=== PATIENT | male | born 1980 | race Hispanic/Latino ===

== ENCOUNTER 2017-12-14 10:56 | Outpatient (CLI) | payer OTHER ==
--- NOTE | 2017-12-14 13:55 | MRI ---
MRI LUMBAR SPINE WITHOUT CONTRAST: HISTORY: Lumbar radiculopathy, right leg is weaker than the left leg, since October. COMPARISON: None. TECHNIQUE: Lumbar spine MRI is performed without intravenous Gadolinium administration. Multisequential, multip lanar imaging is performed. FINDINGS: Appropriate T1 marrow signal intensity lumbar vertebrae. Lumbar spine vertebral body height is maint ained. There is no fracture. No significant STIR hyperintensity to suggest vertebral body edema or ligamentous injury. Symmetric signal intensity of the psoas muscles. Appropriate signal intensity o f the visualized solid organs. Conus medullaris terminates at the superior aspect of L2. Note, there appears to be partially lumbarized S1 vertebral body. 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 No significant central canal steno sis or significant foraminal narrowing. The significance of the left neural foramen perineural sleev e cyst is uncertain, but there does appear to be some displacement of the exiting left T12 nerve root . L1-L2: Adequate disk hydration. No significant central canal stenosis or foraminal narrowing. L2-L3: Adequate disk hydration. No significant central canal stenosis. Neural foramen are patent. L3-L4: Mild loss of disk space height. No significant cardiac silhouette. Foramen are patent. L4-L5: There is mild loss of disk space height. No significant central canal stenosis. Foramen are patent. L5-S1: Minimal loss of disk space height. No significant central canal stenosis. There is mild rig ht foraminal narrowing. The left neural foramen is patent. IMPRESSION: 1. No significant central canal stenosis. No evidence of significant foraminal narrowing. Mild rig ht foraminal narrowing at L5-S1. 2. 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 Significance of this cyst upon the left foraminal nerve root at T12-L1 is uncertain. Correlate clinically. POS: [facility]
== END 2017-12-14 10:57 | disposition home or self-care (01) ==
LOC: TBSIIMAG 10:56
PROVIDERS: ATTEND Neurological Surgery
DX: M54.16 Radiculopathy, lumbar region (principal); M99.83 Other biomechanical lesions of lumbar region; M48.8X5 Other specified spondylopathies, thoracolumbar region
CPT/HCPCS: 72148

== ENCOUNTER 2018-06-26 13:45 | Emergency (ER) | payer OTHER ==
[~2018-06-26 13:45] MED LIST: ISOVUE-370 76%-LOCM 1 ML ONE
[2018-06-26 14:03] LABS: #Basophils 0.1 thou/uL (0.0-0.2); #Eosinphils 0.3 thou/uL (0.0-0.7); #Lymphocytes 2.4 thou/uL (1.20-3.40); #Monocytes 0.2 thou/uL (0.11-0.59); #Neutrophils 4.1 thou/uL (1.40-6.50); %Basophils 1.6 % (0.0-1.0); %Eosinophils 3.9 % (0.0-10.0); %Lymphocytes 33.6 % (21.0-51.0); %Monocytes 3.2 % (0.0-10.0); %Neutrophils 57.6 % (42.0-75.0); Hemoglobin 15.2 g/dL (14.0-18.0); Mean Corpuscular HGB CONC 34.5 g/dL (32.0-36.0); Mean Corpuscular Hemoglobin 32.8 pg (27.0-31.0); Mean Platelet Volume 8.6 fL (7.4-10.4); Platelet Count 198 thou/uL (130-400); RBC Distribution Width 11.4 % (11.5-14.5); Red Blood Cell (RBC) Count 4.63 mill/uL (4.70-6.10); White Blood Cell (WBC) Count 7.2 thou/uL (4.8-10.8)
[2018-06-26 14:25] LABS: ALT (SGPT) 24 U/L (8-55); AST (SGOT) 23 U/L (5-34); Alkaline Phosphatase 107 U/L (40-150); Anion Gap 12 mmol/L (10-20); BUN (Urea Nitrogen) 15 mg/dL (8.9-20.6); Bilirubin, Total 0.5 mg/dL (0.2-1.2); Calc. Creatinine Clearance 0 mL/min (70-130); Calcium 8.9 mg/dL (7.8-10.44); Carbon Dioxide 18 mmol/L (22-29); Chloride 109 mmol/L (98-107); Estimated GFR-MDRD 81; Globulin 2.6 g/dL (2.4-3.5); Glucose 119 mg/dL (70-105); Lipase 30 U/L (8-78); Potassium 3.8 mmol/L (3.5-5.1); Protein, Total 6.6 g/dL (6.0-8.3); Sodium 135 mmol/L (136-145)
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
== END 2018-06-26 16:10 | disposition home or self-care (01) ==
LOC: ERS 13:45
DX: S40.012A Contusion of left shoulder, initial encounter (principal); R07.81 Pleurodynia; V89.2XXA Person injured in unspecified motor-vehicle accident, traffic, initial encounter
CPT/HCPCS: 71260; 72125; 74177; 80053; 83690; 85025; 93005; G0390; Q9966

== ENCOUNTER 2020-04-01 13:38 | Outpatient (CLI) | payer OTHER ==
--- NOTE | 2020-04-01 15:03 | MRI ---
MRI OF THE LEFT WRIST PERFORMED WITHOUT CONTRAST ENHANCEMENT: 04/01/20 HISTORY: Persistent pain after falling out of a truck at work in January 2020. COMPARISON: Plain film examinations of 01/28/20 and 03/09/20. The carpal tunnel region is unremarkable. There are trace tenosynovitis changes of the ECRB and ECRL tendons. Scapholunate and lunotriquetral ligaments appear intact. Triangular fibrocartilage complex appears un remarkable. Normal marrow signal change is seen within the carpal bones. No evidence for any old or new fracture. On the dorsal side of the wrist, mainly superficial to the dorsal radiocarpal ligament is minimal royce ma change in the region of the dorsal capsule. This could represent subtle dorsal capsular injury. Ch anges are more centered along the radial side of the wrist somewhat equivocal finding. IMPRESSION: Trace synovitis changes of the ECRB and ECRL tendons. Also with some minimal edema change in the dors al capsule region. No underlying bony malalignment or fracture. POS: [facility]
== END 2020-04-01 13:39 | disposition home or self-care (01) ==
LOC: BICMRI 13:38
PROVIDERS: ATTEND Nurse Practitioner Family
DX: M84.334D Stress fracture, left radius, subsequent encounter for fracture with routine healing (principal); S69.92XA Unspecified injury of left wrist, hand and finger(s), initial encounter; R60.0 Localized edema

== ENCOUNTER 2023-12-19 15:06 | Outpatient (CLI) | payer BC | END 2023-12-19 15:07 | disposition home or self-care (01) | LOC: SCSMRI 15:06 | PROVIDERS: ATTEND Podiatrist | DX: M76.821 Posterior tibial tendinitis, right leg (principal); S96.911A Strain of unspecified muscle and tendon at ankle and foot level, right foot, initial encounter ==

== ENCOUNTER 2024-11-27 08:00 | Outpatient (CLI) | payer BC ==
[2024-11-27] MEDS ORDERED: Gadobenate Dimeglumine 2 ML, Sodium Chloride 0.9% 250 ML 10 ML, Iopamidol 8 ML, Lidocai... FS SCH (08:30)
[2024-11-27] MEDS ORDERED: Sodium Bicarbonate 2.5 MEQ/5 ML SDV ONE (09:47)
== END 2024-11-27 08:01 | disposition home or self-care (01) ==
LOC: RAD 08:00
PROVIDERS: ATTEND Family Medicine Sports Medicine
DX: S43.432A Superior glenoid labrum lesion of left shoulder, initial encounter (principal); M50.11 Cervical disc disorder with radiculopathy, high cervical region; M47.812 Spondylosis without myelopathy or radiculopathy, cervical region; M48.02 Spinal stenosis, cervical region
CPT/HCPCS: 23350; 72141; 77002; A9577; J0166; J7050; Q9967